=== PATIENT | female | born 1975 | race Caucasian/White ===

== ENCOUNTER 2017-10-13 11:49 | Emergency (ER) | payer OTHER, MEDICAID ==
[~2017-10-13] VITALS: Ht 175.3 cm; Wt 90.9 kg
[~2017-10-13 11:49] MED LIST: LORTA5 PO; NAPR500 PO; SULF1TAB47 PO; Z.0.NO CURRENT MEDS
[2017-10-13 11:50] VITALS: BP 168/112; PULSE 66; RESP 20; TEMP 97.6; O2SAT 100
[2017-10-13 12:59] LABS: BILIRUBIN, URINE NEG (NEG); BLOOD, URINE LARGE (NEG); GLUCOSE,URINE NEG (NEG); KETONE, URINE NEG (NEG); MUCUS URINE FEW /lpf (OCC); NITRITE,URINE NEG (NEG); SQUAMOUS EPITHELIAL CELL URINE 2 /hpf (0-5); URINE COLOR YELLOW (YELLW/STRAW); URINE LEUKOCYTE ESTERASE MOD (NEG)
--- NOTE | 2017-10-13 13:25 | PD ---
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 She says she has history of prolapsed uterus 1 year, but has never been diagnosed or seen a functional consultant about this. She says there is nothing hanging out of her vagina. Reports nausea without vomiting. Denies fevers. Denies abnormal vaginal discharge or odor. Does state that she is at the end of her menstrual period and has minimal amount of vaginal bleeding. Denies dysuria, hematuria. Reports urine frequency which she says is normal for her. Is complaining also of left lower quadrant abdominal pain that started last night. Denies diarrhea. Rates pain 7/10. Has not taken any medications or try any treatments to alleviate her symptoms. Aggravated after bowel movement this morning. No known relieving factors. No functional consultant. No primary care provider. No known allergies. Denies significant past medical history. Has no other medical complaints. No other modifying factors or associated signs and symptoms. PFSH Past Medical History Genitourinary: Yes (ovarian cysts) ?: Not LMP: h/o tubal ligation Tubal Ligation: Yes Past Surgical History Gynecologic Surgery: Yes (tubal ligation) Social History Alcohol Use: Yes (OCCASSIONAL) Tobacco Use: No Substance Use: No Allergies-Medications (Allergen,Severity, Reaction): Coded Allergies: No Known Allergies (Unverified Allergy, Unknown, 10/13/17) Reported Meds & Prescriptions Reported Meds & Active Scripts Active Pyridium (Phenazopyridine HCl) 100 Mg Tab 100 Mg PO Q8H PRN 3 Days Keflex (Cephalexin) 500 Mg Cap 500 Mg PO Q12H 7 Days Review of Systems Except as stated in HPI: all other systems reviewed are Neg Physical Exam Narrative GENERAL: Well-nourished, well-developed female patient, in no acute distress; afebrile, nontoxic-appearing SKIN: Warm and dry. HEAD: Atraumatic. Normocephalic. EYES: Pupils equal and round. No scleral icterus. No injection or drainage. ENT: Mucous membranes pink and moist. NECK: Trachea midline. No lymphadenopathy. CARDIOVASCULAR: Regular rate and rhythm. No murmur appreciated. RESPIRATORY: No accessory muscle use. Clear to auscultation. Breath sounds equal bilaterally. GASTROINTESTINAL: Abdomen soft, left lower quadrant abdominal tenderness on palpation, nondistended. Bilateral pelvic region nontender to palpation. Hepatic and splenic margins not palpable. No guarding, rigidity, rebound tenderness. PELVIC: Exam done in the presence of a nurse. Minimal amount of dark red vaginal discharge noted. Bimanual exam reveals no palpable masses or adnexa tenderness, no uterine tenderness. No prolapsed uterus noted. Possible Cystocele noted. No rectocele. BACK: No CVA tenderness. MUSCULOSKELETAL: No obvious deformities. No clubbing. No cyanosis. No edema. NEUROLOGICAL: Awake and alert. No obvious cranial nerve deficits. Motor grossly within normal limits. Normal speech. PSYCHIATRIC: Appropriate mood and affect; insight and judgment normal. Data Data Last Documented VS Vital Signs Date Time Temp Pulse Resp B/P (MAP) Pulse Ox O2 Delivery O2 Flow Rate FiO2 10/13/17 15:21 16 10/13/17 15:16 68 107/78 (88) 97 Room Air 10/13/17 11:50 97.6 Orders Orders Urinalysis - C+S If Indicated (10/13/17 11:53) Ed Urine Pregnancytest Poc (10/13/17 11:53) Urine Culture (10/13/17 12:42) Complete Blood Count With Diff (10/13/17 13:38) Comprehensive Metabolic Panel (10/13/17 13:38) Lipase (10/13/17 13:38) Ct Abd/Pel W Iv Contrast(Rout) (10/13/17 13:38) Sodium Chlor 0.9% 1000 Ml Inj (Ns 1000 M (10/13/17 13:38) Sodium Chloride 0.9% Flush (Ns Flush) (10/13/17 13:45) Ketorolac Inj (Toradol Inj) (10/13/17 13:45) Iohexol 350 Inj (Omnipaque 350 Inj) (10/13/17 15:24) Gc And Chlamydia Pcr (10/13/17 16:21) Ceftriaxone Inj (Rocephin Inj) (10/13/17 16:30) Ed Discharge Order (10/13/17 16:21) Labs Laboratory Tests Test 10/13/17 12:42 10/13/17 13:50 Urine Color YELLOW Urine Turbidity CLEAR Urine pH 7.0 Urine Specific [place] 1.017 Urine Protein TRACE mg/dL Urine Glucose (UA) NEG mg/dL Urine Ketones NEG mg/dL Urine Occult Blood LARGE Urine Nitrite NEG Urine Bilirubin NEG Urine Urobilinogen LESS THAN 2.0 MG/DL Urine Leukocyte Esterase MOD Urine RBC 17 /hpf Urine WBC 18 /hpf Urine Squamous Epithelial Cells 2 /hpf Urine Mucus FEW /lpf Microscopic Urinalysis Comment CULTURE INDICATED White Blood Count 6.2 TH/MM3 Red Blood Count 4.49 MIL/MM3 Hemoglobin 13.6 GM/DL Hematocrit 39.4 % Mean Corpuscular Volume 87.7 FL Mean Corpuscular Hemoglobin 30.4 PG Mean Corpuscular Hemoglobin Concent 34.6 % Red Cell Distribution Width 13.9 % Platelet Count 288 TH/MM3 Mean Platelet Volume 7.8 FL Neutrophils (%) (Auto) 53.8 % Lymphocytes (%) (Auto) 32.0 % Monocytes (%) (Auto) 8.4 % Eosinophils (%) (Auto) 4.7 % Basophils (%) (Auto) 1.1 % Neutrophils # (Auto) 3.3 TH/MM3 Lymphocytes # (Auto) 2.0 TH/MM3 Monocytes # (Auto) 0.5 TH/MM3 Eosinophils # (Auto) 0.3 TH/MM3 Basophils # (Auto) 0.1 TH/MM3 CBC Comment DIFF FINAL Differential Comment Blood Urea Nitrogen 13 MG/DL Creatinine 0.96 MG/DL Random Glucose 90 MG/DL Total Protein 7.9 GM/DL Albumin 4.2 GM/DL Calcium Level 9.0 MG/DL Alkaline Phosphatase 77 U/L Aspartate Amino Transf (AST/SGOT) 37 U/L Alanine Aminotransferase (ALT/SGPT) 45 U/L Total Bilirubin 0.3 MG/DL Sodium Level 140 MEQ/L Potassium Level 4.5 MEQ/L Chloride Level 105 MEQ/L Carbon Dioxide Level 28.6 MEQ/L Anion Gap 6 MEQ/L Estimat Glomerular Filtration Rate 63 ML/MIN Lipase 110 U/L [facility] Medical Decision Making Medical Screen Exam Complete: Yes Emergency Medical Condition: Yes Medical Record Reviewed: Yes Differential Diagnosis Cystocele, UTI, cystitis, pyelonephritis, diverticulitis, ovarian cyst Narrative Course 42-year-old female with left lower quadrant abdominal pain and pelvic pressure. 1618: CBC, CMP unremarkable. Lipase 110. Urinalysis with signs of infection. CT abdomen/pelvis conclude: Abdomen/Pelvis CT 10/13/17 1338 Signed Impressions: Service Date/Time: Friday, October 13, 2017 15:16 - CONCLUSION: No acute disease. Subcentimeter right hepatic lobe cyst and nonobstructing right renal calculus. Vishal Kramer MD Patient provided a copy of the CT report. Rocephin administered in the ER. Keflex, Pyridium, ibuprofen prescribed for home. Instructed patient to follow up with primary care provider. Patient verbalizes understanding and agreement with treatment plan. Patient is medically cleared and stable for discharge. Discussed reasons to return to the emergency department. Patient agrees with treatment plan. The patients vital signs are stable and the patient is stable for outpatient follow-up and treatment. Patient discharged home, stable and in no acute distress. Diagnosis Primary Impression: UTI (urinary tract infection) Qualified Codes: N39.0 - Urinary tract infection, site not specified; R31.9 - Hematuria, unspecified Additional Impression: Abdominal pain Qualified Codes: R10.32 - Left lower quadrant pain Referrals: Marketing Director Primary Care Physician Patient Instructions: Acute Abdominal Pain (ED), General Instructions, Urinary Tract Infection in Women (ED) Additional Instructions: Take antibiotics as prescribed and complete full course Take Pyridium for bladder spasms: Pyridium will turn your urine bright orange Drink plenty of fluids Maintain good personal hygiene Follow-up with primary care provider Follow-up with functional consultant Return to the emergency department immediately with worsening of symptoms Med/Other Pt SpecificInfo: Prescription(s) given Scripts Phenazopyridine (Pyridium) 100 Mg Tab 100 MG PO Q8H Y for DYSURIA for 3 Days, #9 TAB 0 Refills Prov: Fariba Bucio 10/13/17 Cephalexin (Keflex) 500 Mg Cap 500 MG PO Q12H for Infection for 7 Days, #14 CAP 0 Refills Prov: Fariba Bucio 10/13/17 Disposition: 01 DISCHARGE HOME Condition: Stable Fariba Bucio Oct 13, 2017 13:25
[2017-10-13] MEDS ORDERED: SODIUM CHLOR 0.9% 1000 ML INJ 1,000 ML IV SCH (13:38)
[2017-10-13] MEDS ORDERED: SODIUM CHLORIDE 0.9% FLUSH 10 ML FLUSH IV FLUSH PRN (13:45)
[2017-10-13] MEDS ORDERED: KETOROLAC TROMETHAMINE 30 MG/ML (IVP) VIAL IVP ONE (13:45)
[2017-10-13] MEDS ORDERED: PHEN0.4T PO (13:54)
[2017-10-13] MEDS ORDERED: CEPH-460 PO (13:54)
[2017-10-13 14:02] LABS: AUTOMATED NEUTROPHIL # 3.3 TH/MM3 (1.8-7.7); BASOPHIL # 0.1 TH/MM3 (0-0.2); BASOPHIL % 1.1 % (0.0-2.0); EOSINOPHIL # 0.3 TH/MM3 (0-0.4); EOSINOPHIL % 4.7 % (0.0-4.0); HEMATOCRIT 39.4 % (35.0-46.0); HEMOGLOBIN 13.6 GM/DL (11.6-15.3); MEAN CELL VOLUME 87.7 FL (80.0-100.0); MEAN CORPUSCULAR HEMOGLOBIN 30.4 PG (27.0-34.0); MEAN CORPUSCULAR HGB CONC 34.6 % (32.0-36.0); MEAN PLATELET VOLUME 7.8 FL (7.0-11.0); MONO % 8.4 % (0.0-8.0); MONOCYTE # 0.5 TH/MM3 (0-0.9); NEUT % 53.8 % (16.0-70.0); PLATELET COUNT 288 TH/MM3 (150-450); RED BLOOD COUNT 4.49 MIL/MM3 (4.00-5.30); RED CELL DISTRIBUTION WIDTH 13.9 % (11.6-17.2); WHITE BLOOD COUNT 6.2 TH/MM3 (4.0-11.0)
[2017-10-13 14:24] LABS: ALBUMIN 4.2 GM/DL (3.4-5.0); ALT (GPT) 45 U/L (10-53); AST (GOT) 37 U/L (15-37); BICARBONATE 28.6 MEQ/L (21.0-32.0); BLOOD UREA NITROGEN 13 MG/DL (7-18); CHLORIDE 105 MEQ/L (98-107); CREATININE 0.96 MG/DL (0.50-1.00); GLOMERULAR FILTRATION RATE 63 ML/MIN (>89); GLUCOSE,RANDOM 90 MG/DL (74-106); SODIUM (NA) 140 MEQ/L (136-145)
[2017-10-13 14:26] LABS: ALKALINE PHOSPHATASE 77 U/L (45-117); TOTAL BILIRUBIN ADULT 0.3 MG/DL (0.2-1.0); TOTAL PROTEIN 7.9 GM/DL (6.4-8.2)
[2017-10-13 15:16] VITALS: BP 107/78; PULSE 68; RESP 16; O2SAT 97
[2017-10-13 15:21] VITALS: RESP 16
[2017-10-13] MEDS ORDERED: IOHEXOL 350 MG/ML 10 ML VIAL (for RAD DIAG) IVCONTRAST ONE (15:24)
--- NOTE | 2017-10-13 15:49 | RADRPT ---
EXAM DATE/TIME: 10/13/2017 15:16 [place] COMPARISON: No previous studies available for comparison. INDICATIONS : Lower abdominal pain. IV CONTRAST: 85 cc Omnipaque 350 (iohexol) IV ORAL CONTRAST: No oral contrast ingested. RADIATION DOSE: 7.83 CTDIvol (mGy) MEDICAL HISTORY : Ovarian cyst SURGICAL HISTORY : Tubal ligation. ENCOUNTER: Initial ACUITY: 1 day PAIN SCALE: 6/10 LOCATION: Bilateral lower quadrant TECHNIQUE: Volumetric scanning of the abdomen and pelvis was performed. Using automated exposure control and ad justment of the mA and/or kV according to patient size, radiation dose was kept as low as reasonably achievable to obtain optimal diagnostic quality images. DICOM format image data is available electro nically for review and comparison. FINDINGS: LOWER LUNGS: The visualized lower lungs are clear. LIVER: Homogeneous density without lesion. A subcentimeter cyst is identified in segment 7 of the liver. The re is no dilation of the biliary tree. No calcified gallstones. SPLEEN: Normal size without lesion. PANCREAS: Within normal limits. KIDNEYS: Normal in size and shape. A 1-2 mm nonobstructing calculus is identified in the lower pole of the ri ght kidney. There is no mass or hydronephrosis. ADRENAL GLANDS: Within normal limits. VASCULAR: There is no aortic aneurysm. BOWEL/MESENTERY: The stomach, small bowel, and colon demonstrate no acute abnormality. There is no free intraperitone al air or fluid. ABDOMINAL WALL: Within normal limits. RETROPERITONEUM: There is no lymphadenopathy. BLADDER: No wall thickening or mass. REPRODUCTIVE: Within normal limits. INGUINAL: There is no lymphadenopathy or hernia. MUSCULOSKELETAL: Within normal limits for patient age. CONCLUSION: No acute disease. Subcentimeter right hepatic lobe cyst and nonobstructing right renal calculus. Vishal Kramer MD on October 13, 2017 at 15:42 Board Certified Radiologist. This report was verified electronically.
[2017-10-13] MEDS ORDERED: cefTRIAXone INJ 1,000 MG in SODIUM CHLORIDE 0.9% INJ 100 ML IV ONE (16:30)
== END 2017-10-13 17:37 | disposition home or self-care (01) ==
LOC: NEPD 11:49
DX: N39.0 Urinary tract infection, site not specified (principal); R31.9 Hematuria, unspecified
CPT/HCPCS: 74177; 80053; 81001; 83690; 84703; 85025; 87086; 87491; 87591; 96361; 96365; 96375; 99285; J0696; J1885; J7030; Q9967